=== PATIENT | male | born 1950 | race Caucasian/White ===

== ENCOUNTER 2021-01-12 11:55 | Emergency (ER) | payer MEDICARE, OTHER ==
[~2021-01-12] VITALS: Ht 177.8 cm; Wt 74.8 kg
[2021-01-12 12:05] VITALS: BP 132/83
--- NOTE | 2021-01-12 12:10 | NUR ---
The patient is bibs for c/o lump to left foot x 3 days. Denies pain. Denies trauma. Will continue to monitor the patient.
[2021-01-12] MEDS ORDERED: LIDOCAINE /MPF 1% VIAL 5 ML VIAL ONE (12:26)
[2021-01-12] MEDS ORDERED: LIDOCAINE 0.5%-EPI 1:200,000 50 ML VIAL ONE (12:29)
[2021-01-12] MEDS ORDERED: LIDOCAINE 1%-EPI 1:100,000 50 ML VIAL IJ ONE (12:30)
--- NOTE | 2021-01-12 13:49 | NUR ---
Patient discharged to home in stable condition. Written and verbal after care instructions given. Patient verbalizes understanding of instruction.
== END 2021-01-12 13:49 | disposition home or self-care (01) ==
LOC: ER 11:55
DX: S90.822A Blister (nonthermal), left foot, initial encounter (principal); X58.XXXA Exposure to other specified factors, initial encounter; Y93.89 Activity, other specified; Y92.89 Other specified places as the place of occurrence of the external cause; Y99.8 Other external cause status
CPT/HCPCS: 10140; 99284; J3490 ×2